=== PATIENT | male | born 1955 | race Caucasian/White ===

== ENCOUNTER → 2019-03-07 | Outpatient (CLI) | payer OTHER ==
[~2019-03-07] VITALS: Ht 157.5 cm; Wt 85.7 kg
[~2019-03-07] MED LIST: ASPIR 8181 MG PO; CENTRUM SILVER1 EAC2 PO; FISH OIL 1,2001 EAC4 PO; LISINOPRIL10 MG PO; LOPRESSOR25 PO; METFORMIN HCL500 MG PO; SIMVASTATIN40 MG PO
--- NOTE | ~2019-03-07 | P ---
[facility] [place] [address] PROCEDURE REPORT Name: KUSHAL DINERO Room #: [facility]#: [id number] Admission: 03/07/19 ������������������ Attend Phys: Francisco Guerrero MD Discharge: ������������������ Date of : 53 Report #: [id number] THIS REPORT FOR: //name// CC: Christos Peace DO Eugene Guerrero BRIEF HISTORY: The patient is a 64-year-old male who presents for his first average risk screening colonoscopy. PREOPERATIVE DIAGNOSIS: Average risk screening colonoscopy. POSTOPERATIVE DIAGNOSES: 1. Diminutive proximal ascending colon polyp. 2. A 4 mm sessile polyp, rectum. 3. Moderate sigmoid diverticulosis coli. MEDICATIONS: Deep sedation with propofol per anesthesia. SPECIMENS: 1. Proximal ascending colon polyp. 2. Rectal polyp. ESTIMATED BLOOD LOSS: 3 mL. PROCEDURE: Colonoscopy to cecum and terminal ileum with biopsy. FINDINGS: Prior to propofol sedation, procedure of colonoscopy discussed with the patient as well as potential risks and its complications. He indicates he understands and desires to proceed. DESCRIPTION OF PROCEDURE: With the patient in the left lateral decubitus position, digital examination was completed, which revealed no abnormalities. Subsequently, the Olympus video colonoscope was introduced in the rectum, advanced under direct vision to the cecum. Done with minimal difficulty. The cecum was identified by the ileocecal valve and the appendiceal orifice. I was able to visualize the distal segment of the terminal ileum, which was inspected and noted to be unremarkable. At that point, the scope was slowly withdrawn and careful circumferential views obtained. Upon slow withdrawal of the scope, the prep was noted to be excellent. Mucosa was within normal limits, normal vascular pattern and normal light reflex. As we withdrew the scope, a diminutive polyp was found in the proximal ascending colon and was removed with biopsy forceps. The scope was further withdrawn and there were noted to be a few scattered diverticula in the proximal colon, but there was no endoscopic evidence of diverticulitis. As the scope was withdrawn in the left colon, the patient was noted to have moderate diverticular disease, no endoscopic evidence [address] [address] PROCEDURE REPORT Name: KUSHAL DINERO Room #: REG [facility] RachaelTiffany.#: [id number] Admission: 03/07/19 ������������������ Attend Phys: Francisco Guerrero MD Discharge: ������������������ Date of : 53 Report #: [id number] of diverticulitis. The scope was withdrawn in the rectum and in the distal rectum a 4 mm sessile polyp was seen and removed with biopsy forceps. The scope was withdrawn. The patient tolerated the procedure well. Upon retroflexion, no additional abnormalities were noted. The scope was withdrawn. The patient tolerated the procedure well. CONDITION OF THE PATIENT UPON DISCHARGE: Following procedure, the patient drowsy, aroused, conversant and will be discharged home when fully ambulatory. INSTRUCTIONS TO THE PATIENT AND FAMILY AT THE TIME OF DISCHARGE: Two polyps identified and removed as described above. We will follow up on the pathology. If one or both are adenomas, he is to return in 5 years. If these are hyperplastic polyps then 10 years would be indicated. Also suggested a high-fiber diet for his diverticular disease. He will return to the care of Dr. Christos Peace and return to see me as needed. ��������������������������������������������� ���������������������������������������� By: ��������������������������������������������� 1122 1229 Francisco Guerrero MD /nt
--- NOTE | 2019-03-08 16:06 | PATH ---
[facility] [place] [address] PATHOLOGY RPT PROCEDURE Name: JOVON TORRES Room #: [facility] Rush.#: [id number] ������������������ Admission: 03/07/19 ������������������ Date of : 53 Discharge: Report #: [id number] Path Case #: [id number] [facility] Accession Number: [id number] . 01 Material submitted: . PART A: colon - BX POLYP AT PROXIMAL ASCENDING COLON. Modifiers: proximal, ascending PART B: rectum - BX POLYP AT RECTUM . 01 Clinical history: . Pre-OP DX: Screening Post-OP DX: Colon polyp, diverticulosis, rectal polyp . 02 Diagnosis: A. Polyp, at proximal ascending colon, endoscopic biopsy: - Tubular adenoma. - Negative for high-grade dysplasia. . B. Polyp, at rectum, endoscopic biopsy: - Hyperplastic polyp. - Negative for dysplasia. (IUV:pit; 03/08/2019) QTP/03/08/2019 . 02 Electronically signed: . Makayla Vega MD, Pathologist NPI- [id number] . 01 Gross description: . A. Received in formalin labeled "Jovon Torres, LONA polyp at proximal ascending colon," is a single segment of gamboa soft tissue measuring 0.4 cm in maximum dimension. The specimen is entirely submitted in cassette A1. . B. Received in formalin labeled "Jovon Torres, BX polyp rectum," are 2 segments of gamboa soft tissue measuring 0.5 x 0.3 x 0.2 cm in aggregate dimensions and ranging from 0.2 to 0.3 cm in maximum dimension. The specimen is submitted entirely in cassette B1. (TSD; 03/07/2019) TOB/TOB . 02 Pathologist provided ICD-10: D12.2, K62.1 . 02 CPT . 081639, 267466 Specimen Comment: A courtesy copy of this report has been sent to Specimen Comment: [phone], , [place] [address] PATHOLOGY RPT PROCEDURE Name: JOVON TORRES Room #: [facility] Lon#: [id number] ������������������ Admission: 03/07/19 ������������������ Date of : 53 Discharge: Report #: [id number] Path Case #: [id number] Specimen Comment: Report sent to ,DR KELSEY / DR RIZVI Performed at: [address] [facility], [place], [place] [id number] MD Stevie Urbano MD Phone: [phone] Performed at: [address] [id number] MD Makayla Vega MD Phone: [phone]
== END | disposition home or self-care (01) ==
LOC: GI 08:23
DX: Z12.11 Encounter for screening for malignant neoplasm of colon (principal); D12.2 Benign neoplasm of ascending colon; K62.1 Rectal polyp; K57.30 Diverticulosis of large intestine without perforation or abscess without bleeding; I10 Essential (primary) hypertension; E78.00 Pure hypercholesterolemia, unspecified; E11.9 Type 2 diabetes mellitus without complications; Z95.1 Presence of aortocoronary bypass graft; Z98.890 Other specified postprocedural states; Z88.0 Allergy status to penicillin; Z79.82 Long term (current) use of aspirin; Z79.84 Long term (current) use of oral hypoglycemic drugs
CPT/HCPCS: 62110; 62900